=== PATIENT | male | born 1975 | race African-American/Black ===

== ENCOUNTER 2020-07-30 08:32 | Day surgery (SDC) | payer OTHER ==
[2020-07-30] MEDS ORDERED: Ringers Lactate 1,000 ML IV ONE (09:42)
[2020-07-30] MEDS ORDERED: EPINEPHRINE/PF 1 MG/ML AMP ONE (12:38)
[2020-07-30] MEDS ORDERED: LIDOCAINE 1% MPF 5 ML VIAL ONE (12:40)
[2020-07-30] MEDS ORDERED: propofoL 200 MG/20 ML VIAL IV ONE (12:40)
[2020-07-30] MEDS ORDERED: FENTANYL CITR 100 MCG/2 ML ONE (12:41)
--- NOTE | 2020-07-30 13:29 | ENDO RPT ---
[address], [address] COLONOSCOPY PROCEDURE REPORT EXAM DATE: 07/30/2020 PATIENT NAME: Brennan Cotto MR #: [id number] BIRTHDATE: 1975 ATTENDING: Bong Hayes DR STATUS: outpatient PROCESS IMPROVEMENT ANALYST: INDICATIONS: The patient is a 45 yr old Male here for a colonoscopy due to bright red bleeding and rectal bleeding PROCEDURE PERFORMED: Colonoscopy with biopsy - cold polypectomy and Colonoscopy for control of bleeding MEDICATIONS: Per Anesthesia. ESTIMATED BLOOD LOSS: None CONSENT: The patient understands the risks and benefits of the procedure and understands that these risks include, but are not limited to: sedation, allergic reaction, infection, perforation and/or bleeding. Alternative means of evaluation and treatment include, among others: physical exam, x-rays, and/or surgical intervention. The patient elects to proceed with this endoscopic procedure. DESCRIPTION OF PROCEDURE: During intra-op preparation period all mechanical medical equipment was checked for proper function. Hand hygiene and appropriate measures for infection prevention was taken. Procedure, possible complications, alternatives including, but not limited to possibility of bleeding, perforation, tear, infection, sepsis, need for surgery, need for blood transfusion, were explained to the patient. After the risks, benefits and alternatives of the procedure were thoroughly explained, Informed consent was verified, confirmed and timeout was successfully executed by the treatment team. The patient was placed in the left lateral position. A digital rectal exam was performed and revealed external hemorrhoids and A digital rectal exam was performed and revealed internal hemorrhoids. After appropriate level of anesthesia, the scope was passed. The EC-[id number] ([id number]) and [id number] ([id number]) endoscope was introduced through the anus and advanced to the ileocecal valve. The quality of the prep was poor. The instrument was then slowly withdrawn as the colon was fully examined. - A hemorrhoidal banding was performed on 2 columns with rubber band ligation - Scope withdrawal time was 15 minutes. COLON FINDINGS: Two small smooth sessile polyps were found in the descending colon. A polypectomy was performed with cold forceps. The resection was complete, the polyp tissue was completely retrieved and sent to histology. A polypectomy was performed with a cold snare. The resection was complete, the polyp tissue was completely retrieved and sent to histology. Moderate sized internal and external hemorrhoids were found. Retroflexed views revealed no abnormalities. The scope was then completely withdrawn from the patient and the procedure terminated. ADVERSE EVENTS: There were no complications. IMPRESSIONS: 1. Two small sessile polyps were found in the descending colon; polypectomy was performed in a piecemeal fashion with cold forceps; polypectomy was performed with a cold snare 2. Moderate sized internal and external hemorrhoids RECOMMENDATIONS: 1. await biopsy results 2. avoid NSAIDS for 2 weeks 3. fiber rich diet 4. follow-up: office 2 week(s) 5. Monitor for any evidence of rectal bleeding. 6. hemorrhoidal hygiene RECALL: for Colonoscopy, pending biopsy results. Bong Hayes DR eSigned: Bong Hayes DR 07/30/2020 1:28 PM cc: CPT CODES: ICD9 CODES: PATIENT NAME: Brennan Cotto MR#: [id number]
[2020-07-30 13:51] VITALS: TEMP 97.6; O2SAT 100
[2020-07-30 14:07] VITALS: BP 138/82
[2020-07-30] MEDS ORDERED: ONDANSETRON 4 MG/2 ML VIAL ONE (14:13)
== END 2020-07-30 14:06 | disposition home or self-care (01) ==
LOC: OR 08:32
PROVIDERS: ATTEND Surgery
PROC: 0DBM8ZX Excision of Descending Colon, Via Natural or Artificial Opening Endoscopic, Diagnostic (ICD-10-PCS; 2020-07-30)
PROC: 06LY4CC Occlusion of Hemorrhoidal Plexus with Extraluminal Device, Percutaneous Endoscopic Approach (ICD-10-PCS; principal; 2020-07-30 12:15)
DX: K63.5 Polyp of colon (principal); K64.4 Residual hemorrhoidal skin tags; K64.8 Other hemorrhoids; Z20.822 Contact with and (suspected) exposure to COVID-19
CPT/HCPCS: 88305 ×2; 46946; 45385; U0003; J2704; J3010; J7120; J2405; J0171

== ENCOUNTER 2020-09-21 06:40 | Day surgery (SDC) | payer OTHER ==
[2020-09-21] MEDS ORDERED: BUPIVACAINE 0.25% PF 30 ML VIAL ONE (07:21)
[2020-09-21] MEDS ORDERED: NA CHLORIDE 0.9% 1,000 ML ONE (07:23)
[2020-09-21] MEDS: CEFAZOLIN/SWI 2gm 2 GM/20 ML SYR ONE ×2 (07:25→08:30)
[2020-09-21] MEDS ORDERED: LIDOCAINE 1% MPF 5 ML VIAL ONE (08:31)
[2020-09-21] MEDS ORDERED: MIDAZOLAM HCL 2 MG/2 ML INJ ONE (08:31)
[2020-09-21] MEDS ORDERED: FENTANYL CITR 100 MCG/2 ML ONE ×2 (08:31→10:09)
[2020-09-21] MEDS ORDERED: propofoL 200 MG/20 ML VIAL IV ONE (08:31)
[2020-09-21] MEDS ORDERED: KETOROLAC 30 MG/ML INJ ONE (08:59)
[2020-09-21] MEDS ORDERED: ONDANSETRON 4 MG/2 ML VIAL ONE (08:59)
[2020-09-21] MEDS ORDERED: dexAMETHasone 10 MG/ML VIAL ONE (08:59)
--- NOTE | 2020-09-21 11:46 | P.OP ---
Preoperative diagnosis: LEFT tricept intramuscular lipoma, left back lipoma Postoperative diagnosis: LEFT tricept intramuscular lipoma, left back lipoma Primary procedure: Excision of LEFT tricept intramuscular lipoma, left back lipoma Anesthesia: GETA + Local Estimated blood loss: <30cc Specimen: lipomatous masses Findings: ~11cm x 8cm tricept IM lipoma near ulnar neurvasc bundle Complications: None Drain(s): YOLANDA drain (7mm round) Transferred to: Recovery Room Condition: Good
[2020-09-21] MEDS ORDERED: HYDROCODONE/APAP 10/325 TAB ONE (12:56)
[2020-09-21 13:52] VITALS: BP 120/75; TEMP 96; O2SAT 100
--- NOTE | 2020-09-21 19:27 | OP ---
Date of Procedure: 09/21/2020 Surgeon: Bong Hayes MD, Preoperative Diagnoses: 1.Left triceps intramuscular lipoma. 2.Left back lipoma. Postoperative Diagnoses: 1.Left triceps intramuscular lipoma. 2.Left back lipoma. Procedure Performed: 1.Excision of left triceps intramuscular lipoma. 2.Excision of left back and flank lipoma. Anesthesia: General endotracheal plus local with 0.25% Marcaine without epinephrine. Estimated Blood Loss: Less than 30 mL. Specimen: Lipomatous masses as described above. Findings: 11 cm x 8 cm tricipital intramuscular lipoma near the ulnar neurovascular bundle. Complications: None. Drains: Approximately a 7 mm round YOLANDA drain. Disposition: The patient was transferred to the recovery room in good condition. Procedure In Detail: After informed consent was obtained, the patient was brought to the operating r oom, and prepped and draped in the usual sterile fashion. After adequate anesthesia was achieved, a linear incision was made over the left bicipital groove down through subcutaneous tissues using a 15 blade. I then dissected down using electrocautery, down through subcutaneous tissues. I dissected d own to the musculofascial plane. Some lipomatous tissue was removed from the subcutaneous position a s it was in the way and appeared somewhat thickened and slightly lipomatous. As such, I then passed this off for pathologic examination. I then accessed the tricipital fascial component, opening this sharply initially with the Metzenbaum scissors. I then used a combination of sharp and blunt dissect ion as well as electrocautery to open up the musculofascial plane. I then encountered the lipomatous mass, which was found to be between the heads of the triceps and down deep to the neurovascular bund le near the ulnar neurovascular bundle. I then circumferentially dissected using primarily blunt dis section to bring the lipoma into the surgical field. I used minimal electrocautery circumferentially around to dissect the tissue out and sent off for pathologic examination. At this point, I copiousl y irrigated the area, brought a 7 mm round YOLANDA drain into the deep muscular plane compartment. The mu scular planes were not violated throughout the entire procedure as was the ulnar nerve neurovascular bundle protected throughout the procedure. I then brought the YOLANDA drain out through a separate stab i ncision inferior medial from the previous incision. I then secured it to the skin using a 3-0 nylon suture and irrigated the area copiously. I then closed the musculofascial plane over the top with a running 3-0 Vicryl suture and irrigated the area once again and closed the deep dermal plane using 3- 0 Vicryl and the skin was closed with interrupted dalia. The patient was then repositioned. I the n addressed the left flank area, which was appropriately anesthetized with 0.25% Marcaine. Sharply i ncised with a 15 blade down to subcutaneous tissues. A lipomatous mass was encountered in this area. I then dissected circumferentially around to remove this fibrolipomatous lesion, which was approxim ately 1.5 to 2 cm in size. At this point, this was sent off for pathologic examination. The area wa s copiously irrigated and closed with a 4-0 Monocryl in running fashion. Dermabond placed over top. The patient tolerated the procedure well without evidence of complication and transferred to PACU in good condition. All counts were correct at the end of the case. IVANA/ROMANA Voice ID: [id number] Report ID: [id number]
== END 2020-09-21 13:05 | disposition home or self-care (01) ==
LOC: OR 06:40
PROVIDERS: ATTEND Surgery
PROC: 0JB70ZZ Excision of Back Subcutaneous Tissue and Fascia, Open Approach (ICD-10-PCS; 2020-09-21)
PROC: 0JBF0ZZ Excision of Left Upper Arm Subcutaneous Tissue and Fascia, Open Approach (ICD-10-PCS; principal; 2020-09-21 08:00)
DX: D17.22 Benign lipomatous neoplasm of skin and subcutaneous tissue of left arm (principal); D17.1 Benign lipomatous neoplasm of skin and subcutaneous tissue of trunk; Z20.822 Contact with and (suspected) exposure to COVID-19
CPT/HCPCS: 88304; 11406; 11402; U0003; J2704; J2250; J3010 ×2; J1100; J0690; J7030; J2405; 88305

== ENCOUNTER 2020-09-30 06:39 | Emergency (ER) | payer OTHER ==
--- NOTE | 2020-09-30 08:37 | EDPHYS ---
Physician Documentation [facility] Name: Brennan Cotto Age: 45 yrs Sex: Male : 1975 Arrival Date: 09/30/2020 Time: 06:45 Bed 12 Private MD: Edmund Frarell HPI: 09/30 07:57 This 45 yrs old Black Male presents to ER via Ambulatory with complaints of Post kevin surgical Problem, Fluid build-up. 07:57 The patient or guardian complains of pain, swelling, tenderness. kevin Historical: - Allergies: 07:39 No Known Allergies; iw - Home Meds: 07:39 None [Active]; iw - PMHx: 07:39 None; iw - PSHx: 07:39 Hemorrhoidectomy; iw - Immunization history:: Client reports receiving the 2nd dose of the Covid vaccine. - Social history:: Smoking status: Patient denies any tobacco usage or history of. ROS: 07:57 Constitutional: Negative for fever, chills, and weight loss, Eyes: Negative for injury, kevin pain, redness, and discharge, ENT: Negative for injury, pain, and discharge, Neck: Negative for injury, pain, and swelling, Cardiovascular: Negative for chest pain, palpitations, and edema, Respiratory: Negative for shortness of breath, cough, wheezing, and pleuritic chest pain, Abdomen/GI: Negative for abdominal pain, nausea, vomiting, diarrhea, and constipation, Back: Negative for injury and pain, : Negative for injury, bleeding, discharge, and swelling, Neuro: Negative for headache, weakness, numbness, tingling, and seizure, Psych: Negative for depression, anxiety, suicide ideation, homicidal ideation, and hallucinations, Allergy/Immunology: Negative for hives, rash, and allergies, Endocrine: Negative for neck swelling, polydipsia, polyuria, polyphagia, and marked weight changes, Hematologic/Lymphatic: Negative for swollen nodes, abnormal bleeding, and unusual bruising. 07:57 MS/extremity: Positive for decreased range of motion, erythema, pain, tenderness, of the left tricep. Exam: 07:57 Constitutional: This is a well developed, well nourished patient who is awake, alert, kevin and in no acute distress. Head/Face: Normocephalic, atraumatic. Eyes: Pupils equal round and reactive to light, extra-ocular motions intact. Lids and lashes normal. Conjunctiva and sclera are non-icteric and not injected. Cornea within normal limits. Periorbital areas with no swelling, redness, or edema. ENT: Nares patent. No nasal discharge, no septal abnormalities noted. Tympanic membranes are normal and external auditory canals are clear. Oropharynx with no redness, swelling, or masses, exudates, or evidence of obstruction, uvula midline. Mucous membranes moist. Neck: Trachea midline, no thyromegaly or masses palpated, and no cervical lymphadenopathy. Supple, full range of motion without nuchal rigidity, or vertebral point tenderness. No Meningismus. Chest/axilla: Normal chest wall appearance and motion. Nontender with no deformity. No lesions are appreciated. Cardiovascular: Regular rate and rhythm with a normal S1 and S2. No gallops, murmurs, or rubs. Normal PMI, no JVD. No pulse deficits. Respiratory: Lungs have equal breath sounds bilaterally, clear to auscultation and percussion. No rales, rhonchi or wheezes noted. No increased work of breathing, no retractions or nasal flaring. Abdomen/GI: Soft, non-tender, with normal bowel sounds. No distension or tympany. No guarding or rebound. No evidence of tenderness throughout. Back: No spinal tenderness. No costovertebral tenderness. Full range of motion. Male : Normal genitalia with no discharge or lesions. Skin: Warm, dry with normal turgor. Normal color with no rashes, no lesions, and no evidence of cellulitis. Neuro: Awake and alert, GCS 15, oriented to person, place, time, and situation. Cranial nerves II-XII grossly intact. Motor strength 5/5 in all extremities. Sensory grossly intact. Cerebellar exam normal. Normal gait. Psych: Awake, alert, with orientation to person, place and time. Behavior, mood, and affect are within normal limits. 07:57 Musculoskeletal/extremity: ROM: limited active range of motion, limited passive range of motion, Circulation is intact in all extremities. Sensation intact. Compartment Syndrome exam of affected extremity: is normal. 07:57 Skin: Appearance: Color: normal in color, Temperature: normal temperature, Moisture: normal moisture, petechiae, not noted, ecchymosis, not noted, abscess, not appreciated, cellulitis, that is mild, induration, that is mild is noted, injury. Vital Signs: 07:37 BP 135 / 79; Pulse 93; Resp 16; Temp 97.7; Pulse Ox 99% on R/A; Weight 131.54 kg; iw Height 6 ft. 2 in. (187.96 cm); 07:37 Body Mass Index 37.23 (131.54 kg, 187.96 cm) iw Procedures: 08:31 I \T\ D: Incision and drainage was performed for an abscess of the left Prepped with kevin Betadine, Anesthetized with nothing. Incised with q tip. Drained moderate amount seroma, clear, not bloody, not purlent Packed with iodoform gauze, Dressing: sterile 4x4 gauze, non-Adherent dressing, clarence. MDM: 07:48 Patient medically screened. [facility] 07:59 Differential diagnosis: dislocation, abrasion. Data reviewed: vital signs, nurses kevin notes. Data interpreted: conference services coordinator: not applicable for this patient encounter. rate is 93 beats/min, rhythm is regular, Pulse oximetry: on room air is 99 %. Counseling: I had a detailed discussion with the patient and/or guardian regarding: the historical points, exam findings, and any diagnostic results supporting the discharge/admit diagnosis, lab results. 08:38 Physician consultation: Bong Hayes MD and will see patient in office, tomorrow. [facility] 09/30 08:03 Order name: Wound Culture [facility] 09/30 08:03 Order name: Suture Tray at Bedside; Complete Time: 08:25 kevin Administered Medications: 08:32 Drug: Doxycycline 200 mg Route: PO; iw 08:32 Drug: Bactrim (trimethoprim-sulfamethoxazole) (160 mg-800 mg (DS) 1 tablet Route: PO; iw Disposition Summary: 09/30/20 08:36 Discharge Ordered Location: Home kevin Problem: new kevin Symptoms: have improved kevin Condition: Stable kevin Diagnosis - Postprocedural hemorrhage of skin and subcutaneous tissue following other procedure kevin - seroma, drainage, uncomplicated Followup: kevin - With: Bong Hayes MD - When: Tomorrow - Reason: Wound Recheck, Recheck today's complaints, Continuance of care, Re-evaluation by your physician Discharge Instructions: - Discharge Summary Sheet kevin - How to Change Your Wound Dressing kevin - How to Change Your Wound Dressing, [id number] kevin - Sutures, [place], or Adhesive Wound Closure, [id number] kevin - Wound Packing kevin - Seroma kevin Forms: - Medication Reconciliation Form kevin - Thank You Letter kevin - Antibiotic Education kevin - Prescription Opioid Use kevin Prescriptions: - Doxycycline Hyclate 100 mg Oral Tablet - take 1 tablet by ORAL route every 12 hours; 20 tablet; Refills: 0, Product kevin Selection Permitted - Bactrim DS 800-160 mg Oral Tablet - take 1 tablet by ORAL route every 12 hours for 10 days; 20 tablet; Refills: 0, kevin Product Selection Permitted Signatures: Dispatcher [employer] Edmund Colon MD MD cha Williams, Irene, RN RN iw
--- NOTE | 2020-09-30 08:37 | ER ---
Nurse's Notes [facility] Name: Brennan Cotto Age: 45 yrs Sex: Male : 1975 Arrival Date: 09/30/2020 Time: 06:45 Bed 12 Private MD: Diagnosis: Postprocedural hemorrhage of skin and subcutaneous tissue following other procedure-seroma, drainage, uncomplicated Presentation: 09/30 07:37 Chief complaint: Patient states: had surgery on upper left arm on , had a lipoma iw removed and now there is fluid build up in arm, pulled drain out on Thursday and this morning it was swollen. Coronavirus screen: At this time, the client does not indicate any symptoms associated with coronavirus-19. Ebola Screen: Patient negative for fever greater than or equal to 101.5 degrees Fahrenheit, and additional compatible Ebola Virus Disease symptoms Patient denies exposure to infectious person. Patient denies travel to an Ebola-affected area in the 21 days before illness onset. No symptoms or risks identified at this time. Initial Sepsis Screen: Does the patient meet any 2 criteria? No. Patient's initial sepsis screen is negative. Does the patient have a suspected source of infection? No. Patient's initial sepsis screen is negative. Risk Assessment: Do you want to hurt yourself or someone else? Patient reports no desire to harm self or others. Onset of symptoms was September 30, 2020. 07:37 Method Of Arrival: Ambulatory iw 07:37 Acuity: BRENDAN 3 iw Historical: - Allergies: 07:39 No Known Allergies; iw - Home Meds: 07:39 None [Active]; iw - PMHx: 07:39 None; iw - PSHx: 07:39 Hemorrhoidectomy; iw - Immunization history:: Client reports receiving the 2nd dose of the Covid vaccine. - Social history:: Smoking status: Patient denies any tobacco usage or history of. Screenin:49 Abuse screen: Denies threats or abuse. Denies injuries from another. Nutritional iw screening: No deficits noted. Tuberculosis screening: No symptoms or risk factors identified. Fall Risk None identified. Assessment: 07:49 General: Appears in no apparent distress. Behavior is calm, cooperative. Pain: Denies iw pain. Neuro: Level of Consciousness is awake, alert, obeys commands, Oriented to person, place, time, situation, Moves all extremities. Full function. Respiratory: Respiratory effort is even, unlabored, Respiratory pattern is regular, symmetrical. 07:56 Derm: Skin is redness and swelling noted to underside of left upper arm at surgical iw site. Vital Signs: 07:37 BP 135 / 79; Pulse 93; Resp 16; Temp 97.7; Pulse Ox 99% on R/A; Weight 131.54 kg; iw Height 6 ft. 2 in. (187.96 cm); 07:37 Body Mass Index 37.23 (131.54 kg, 187.96 cm) iw ED Course: 06:45 Patient arrived in ED. bp1 07:39 Triage completed. iw 07:40 Arm band placed on. iw 07:48 Edmund Colorado MD is Attending Physician. kevin 07:55 Shana Reyes, RN is Primary Nurse. iw 08:33 Bong Hayes MD is Referral Physician. kevin Administered Medications: 08:32 Drug: Doxycycline 200 mg Route: PO; iw 08:32 Drug: Bactrim (trimethoprim-sulfamethoxazole) (160 mg-800 mg (DS) 1 tablet Route: PO; iw Outcome: 08:36 Discharge ordered by . kevin 08:47 Patient left the ED. iw Signatures: Edmund Colorado MD MD cha Williams, Irene, RN RN iw Karishma Beaulieu bp1 Corrections: (The following items were deleted from the chart) 07:56 07:49 Respiratory: Respiratory effort is even, unlabored, Respiratory pattern is iw regular, symmetrical, iw
[2020-09-30] MEDS ORDERED: DOXYCYCLINE 100 MG CAP PO ONE (08:52)
[2020-09-30] MEDS ORDERED: SMZ./TMP. 800/160 MG TABLET ONE (08:52)
[2020-09-30 08:53] VITALS: BP 135/79; TEMP 97.7; O2SAT 99
== END 2020-09-30 08:47 | disposition home or self-care (01) ==
LOC: ER 06:39
PROC: 0J9F0ZZ Drainage of Left Upper Arm Subcutaneous Tissue and Fascia, Open Approach (ICD-10-PCS; principal; 2020-09-30)
DX: L76.34 Postprocedural seroma of skin and subcutaneous tissue following other procedure (principal)
CPT/HCPCS: 87070; 87077; 87186; 87205; 99282

== ENCOUNTER 2021-07-30 09:52 | Day surgery (SDC) | payer OTHER ==
[2021-07-25 12:52] LABS: Absolute Lymphocytes (CBC) 0.8 K/uL (0.7-4.9); Hematocrit 43.8 % (39.6-49.0); Lymphocytes % 15.9 % (15.3-44.8); MPV 6.8 fL (7.6-11.3); RBC Red Blood Cell Count 5.04 M/uL (4.33-5.43)
[2021-07-25 12:55] LABS: Protime INR 1.02
[2021-07-25 13:08] LABS: Potassium 3.9 mmol/L (3.5-5.1)
--- NOTE | 2021-07-27 14:33 | EKG ---
Test Date: 2021-07-25 Test Time: 12:31:29 Cloth Checker: SANDER MEASUREMENT RESULTS: Intervals: Rate: 80 KY: 184 QRSD: 82 QT: 388 QTc: 447 [place]: P: 72 KY: 184 QRS: 76 T: 74 INTERPRETIVE STATEMENTS: Normal sinus rhythm ST elevation, consider early repolarization, pericarditis, or injury Nonspecific ST and T wave abnormality Abnormal ECG No previous ECG available for comparison Electronically Signed On 07-27-21 14:32:21 CDT by Mohan Carreno
[2021-07-30] MEDS ORDERED: CEFAZOLIN 2 GM IN 0.9% NACL 2 GM/100 ML BAG ONE (10:25)
[2021-07-30] MEDS ORDERED: Ringers Lactate 1,000 ML IV ONE (10:25)
[2021-07-30] MEDS ORDERED: CELECOXIB 100 MG CAPSULE PO ONE (10:55)
[2021-07-30] MEDS ORDERED: ACETAMINOPHEN 500 MG TAB PO ONE (10:55)
[2021-07-30] MEDS ORDERED: BUPIVACAINE 0.25% PF 10 ML VIAL ONE (12:43)
[2021-07-30] MEDS ORDERED: BACITRACIN OINTMENT 14 GM TUBE TOP ONE (12:43)
[2021-07-30] MEDS ORDERED: propofoL 200 MG/20 ML VIAL IV ONE ×2 (13:53→14:17)
[2021-07-30] MEDS ORDERED: MIDAZOLAM HCL 2 MG/2 ML INJ ONE (13:53)
[2021-07-30] MEDS ORDERED: ONDANSETRON 4 MG/2 ML VIAL ONE ×2 (13:54→16:54)
[2021-07-30] MEDS ORDERED: FENTANYL CITR 100 MCG/2 ML ONE ×3 (13:54→15:11)
[2021-07-30] MEDS ORDERED: LIDOCAINE 2% MPF 5 ML VIAL ONE (13:54)
[2021-07-30] MEDS ORDERED: BUPIVACAINE 0.25% PF 10 ML VIAL IJ ONE ×2 (14:34→15:43)
[2021-07-30] MEDS ORDERED: HYDROCODONE/APAP 5/325 MG TAB PO PRN (16:14)
[2021-07-30] MEDS ORDERED: HYDROCODONE/APAP 5/325 MG TAB ONE (17:04)
[2021-07-30 17:58] VITALS: BP 154/94; TEMP 96.1; O2SAT 97
--- NOTE | 2021-07-30 21:26 | OP ---
Surgeon: CORNELIUS ANDERSON Preoperative Diagnoses: 1.Bilateral epididymal mass lesions. 2.Right 2.5 cm epididymal mass. 3.Left 1.5 cm epididymal mass. Postoperative Diagnosis: Right epididymal mass. Principle Procedures: 1.Right subinguinal exploration. 2.Right partial epididymectomy. Indication For Procedure: Mr. Anderson is a -elgs-sen gentleman with no significant past me dical or surgical history, who presented with bilateral epididymal head lesions initially observed to be about 1.5 cm on the right and 0.5 cm on the left. He desired elective sterilization via vasectom y, but given the abnormality felt in his epididymis of a solid mass like structure instead of a cysti c structure, I recommended scrotal ultrasound. Ultrasound was completed and identified a 2 x 1 cm av ascular hypoechoic focus of tissue superior and lateral supposedly to the epididymis as a correlate t o the patient's palpable abnormalities. This was completed on 05/13/2021. The patient saw me back i n followup 06/07/2021 and the mass had continued to enlarge and was now to my estimation about 2.5 cm . As a result, given the solid masslike feel and a relatively rapid growth of this lesion, I recomme nded subinguinal exploration and excisional biopsy of the mass. Procedure In Detail: The patient was consented in the preoperative holding area before being transfe rred to the operative suite where general anesthesia was induced using an LMA. He was given 2 g Ance f IV antimicrobial prophylaxis and pneumo boots were provided for DVT prophylaxis. He was supine on the procedure table, padded and secured appropriately. His lower abdominal area and suprapubic regio n on the right side were shaved before being prepped and draped in standard fashion using Betadine. The scrotum was also prepped into the field. The case was begun by identifying the skin overlying th e external inguinal ring, and 0.25% Marcaine plain was injected subcutaneously and an approximately 2 cm incision marked in that region. A 15-blade was used to incise the skin, and electrocautery was u sed to deepen through the subcutaneous tissues and through the subcutaneous fat down to the level of Maggi fascia. Maggi fascia was divided, and the cord structures were then identified. I then tico childers encircled the cord and elevated it into the surface above the incision. I then carefully and shahzad ntly dissected the tissues surrounding the cord structure emanating toward the testis within the scro ebony, and delivered the testicle via the subinguinal space into the surface of the incision. I did no t sever the gubernaculum, instead, I divided the tunica vaginalis and the ventral surface longitudina lly and revealed the testis and the epididymis. At this point, I was able to palpate the epididymal head structures and identified a very nodular solid masslike structure within the head of the right e pididymis. As a result, I began careful dissection using tenotomy scissors and [place] forceps to di ssect away the visceral layer of the tunica vaginalis and remove the associated cremasteric fibers us ing a pinpoint Bovie electrocautery and using a 4-0 PDS suture where necessary to ligate any vascular tributaries or ductal structures emanating from the surface of the testis. Once the epididymal mass structure had been mostly , but still attached to the surface of the testis, I then utilize d a 4-0 PDS suture in a running horizontal mattress fashion to suture across the surface of the testi s before then using Bovie electrocautery to excise the entirety of the mass, which involved the head of the epididymis. Once done, I then excised an additional component of nodular tissue at the base o f the resection and sent this as a margin of resection where I placed a Vicryl suture that was tied d own on the surface that was residual involving the testis. The inferior most component of the head o f the epididymis beyond the mass was then tied off using 3-0 PDS suture, and the mass and its margin were sent for pathologic analysis. I then continued to complete over-sewing the surface of the testi s in a vascular hemostatic fashion, and in the end, the area was nicely hemostatic. An additional 2 sutures of [id number]-rc-lakcm were applied to achieve complete hemostasis and even observed no venous oo zing. Once this was done, copious irrigation of the testis was performed with pinpoint Bovie electro cautery fulguration using the forceps in a bipolar fashion where necessary. I then copiously irrigat ed the remainder of the scrotal and testicular structures before delivering the testis back into the scrotum. Since the gubernaculum was attached still, I was able to pull on the scrotum while reinsert ing the testis ensuring the vasculature and the cord structures were orthotopic and not twisted. Onc e returned to its intrascrotal location, I then copiously irrigated the subcutaneous tissues and fulg urated any oozing vessels there. The Maggi layer and subcutaneous tissues were closed using 3-0 Hero ryl and then the skin was closed using 4-0 Monocryl suture and then sealed with Dermabond. The patie nt was then awakened from general anesthesia, transferred to a stretcher, and then transferred to the recovery room in good condition. Complications: None. Discharge Disposition: He should follow up in the Urology Clinic within the next 3-4 weeks to discus s the results of the pathology and determine if any additional evaluation is required of the left jada e for further treatment of the right side. POLY/ROMANA Voice ID: [id number] Report ID: [id number]
== END 2021-07-30 17:35 | disposition home or self-care (01) ==
LOC: OR 09:52
PROVIDERS: ATTEND Urology
PROC: 0VBJ0ZZ Excision of Right Epididymis, Open Approach (ICD-10-PCS; principal; 2021-07-30 13:00)
DX: N50.9 Disorder of male genital organs, unspecified (principal); Z20.822 Contact with and (suspected) exposure to COVID-19
CPT/HCPCS: 93005; 85025; 80048; 36415 ×2; 85610; 88305; 84484; 54830; U0002; J2704 ×2; J2250; J3010 ×3; J0690; J7120; J2405 ×2; 88304; 88312